=== PATIENT | male | born 1965 | race Caucasian/White ===

== ENCOUNTER 2020-07-29 18:51 | Inpatient (IN) | payer MEDICARE, OTHER ==
[~2020-07-29] VITALS: Ht 170.2 cm; Wt 97.1 kg
[2020-07-29 20:38] LABS: BUN/CREATININE RATIO 12 (0-10)
[2020-07-29 22:33] LABS: HEMOGLOBIN 11.1 gm/dl (14.0-17.5); RED BLOOD COUNT 3.46 M/UL (4.20-5.50); WHITE BLOOD COUNT 7.3 K/UL (4.5-11.0)
[2020-07-30] MEDS ORDERED: ZYRTEC10 MG PO (01:58)
[2020-07-30] MEDS ORDERED: POTASSIUM CHLO20 ME1 PO (02:00)
[2020-07-30] MEDS ORDERED: LASIX 40 MG TAB40 MG PO (02:00)
[2020-07-30 04:22] LABS: HEMOGLOBIN 11.7 gm/dl (14.0-17.5); RED BLOOD COUNT 3.68 M/UL (4.20-5.50); WHITE BLOOD COUNT 5.9 K/UL (4.5-11.0)
[2020-07-30 04:42] LABS: BUN/CREATININE RATIO 15 (0-10)
[2020-07-31 07:20] LABS: BUN/CREATININE RATIO 18 (0-10)
--- NOTE | 2020-07-31 11:21 | NUR ---
PATIENT IS ALERT AND ORIENTED AND IS REFUSING THE BED ALARM. HE SAID HE UNDERSTANDS THE RSIK OF FALLING AND THAT HE DOES NOT THINK HE WILL FALL AGAIN. HE UNDERSTANDS THAT WE ARE NOT LIABLE FOR ANY HARMTHAT COMES FROM HIM FALLING. HE SAID HE WILL CALL OUT FOR HELP IF HE NEEDS IT.
[2020-07-31 12:15] LABS: HBSAG SCREEN Negative (Negative); HEP B CORE AB, TOT Negative (Negative); HEP C VIRUS AB 5.3 (0.0-0.9)
[2020-07-31] MEDS ORDERED: FUROSEMIDE40 MG PO (14:36)
[2020-07-31] MEDS ORDERED: CHRONULAC20 GM/30 M PO (14:36)
[2020-07-31] MEDS ORDERED: ALDACTONE 25MG25 MG PO (14:36)
== END 2020-07-31 15:59 | disposition home or self-care (01) | DRG 432 ==
LOC: ER1 18:51 → MED SURG 4 22:53 → CDU 22:53 → MED SURG 4 07-30 01:20
PROVIDERS: Family Medicine; Internal Medicine Infectious Disease; ADMIT Internal Medicine
PROC: 0WJG3ZZ Inspection of Peritoneal Cavity, Percutaneous Approach (ICD-10-PCS; principal; 2020-07-31)
PROC: BW40ZZZ Ultrasonography of Abdomen (ICD-10-PCS; 2020-07-31)
DX: K74.69 Other cirrhosis of liver (principal); K72.00 Acute and subacute hepatic failure without coma; R18.8 Other ascites; D68.9 Coagulation defect, unspecified; Z20.822 Contact with and (suspected) exposure to COVID-19; K76.6 Portal hypertension; D61.818 Other pancytopenia; I10 Essential (primary) hypertension; R73.03 Prediabetes; G89.29 Other chronic pain; E88.09 Other disorders of plasma-protein metabolism, not elsewhere classified; D69.6 Thrombocytopenia, unspecified; E83.42 Hypomagnesemia; F17.210 Nicotine dependence, cigarettes, uncomplicated; Z88.6 Allergy status to analgesic agent
CPT/HCPCS: 36415; 51702; 80053; 81001; 82140; 83690; 83735; 85025; 85610; 86704; 86706; 86708; 86803; 87340; 97161; 97166; 99285; C1729; J0696; J1940; J3475; P9047; U0002